=== PATIENT | male | born 1960 | race Caucasian/White ===

== ENCOUNTER 2017-01-25 15:40 | Inpatient (IN) | payer OTHER ==
[2017-01-25] MEDS ORDERED: FAMOTIDINE 20 MG/50 ML IVPB 50 ML IVPB ONE ×2 (15:56→16:04)
[2017-01-25] MEDS ORDERED: ONDANSETRON 4 MG/2 ML VIAL IVPB ONE (15:56)
--- NOTE | 2017-01-25 15:56 | PDOC ---
History of Present Illness - History of Present Illness Initial Comments: 01/25/17 16:02 The patient is a 56 year old male with history of hyperlipidemia and hypothyroidism who presents to the ED complaining of bilateral mid abdominal pain that woke him from sleep at approximately 4 AM today. The patient describes his pain as constant and not associated with eating. He states he experienced similar pain approximately 3 months ago, but the episode was brief and resolved after taking Pepto-Bismol. He reports he took Pepto-Bismol twice today without apparent relief. He does report forcing himself to vomit to try to alleviate his pain without relief, but denies seeing blood and otherwise denies any nausea, vomiting, or diarrhea. The patient denies any fever or chills. He denies chest pain or shortness of breath. He denies any dysuria, hematuria, frequency, or urgency. He states he drinks alcohol socially, but denies any recent alcohol consumption. <Melissa Watkins - Last Filed: 01/25/17 19:09> <Huey Jacobson - Last Filed: 01/25/17 19:12> - General Chief Complaint: Pain, Acute Stated Complaint: ABD PAIN Time Seen by Provider: 01/25/17 15:42 Past History <Melissa Watkins - Last Filed: 01/25/17 19:09> - Past Medical History Hypercholesterolemia: Yes Thyroid Disease: Yes - Psycho/Social/Smoking Cessation Hx Anxiety: No Suicidal Ideation: No Smoking History: Never smoked Have you smoked in the past 12 months: No Hx Alcohol Use: Yes Drug/Substance Use Hx: No Substance Use Type: Alcohol <Huey Jacobson - Last Filed: 01/25/17 19:12> - Past Medical History Allergies/Adverse Reactions: Allergies Allergy/AdvReac Type Severity Reaction Status Date / Time No Known Allergies Allergy Verified 01/25/17 15:41 Home Medications: Ambulatory Orders Atorvastatin Ca [Lipitor] 20 mg PO HS 01/25/17 Levothyroxine [Synthroid -] 25 mcg PO DAILY 01/25/17 Review of Systems - Review of Systems Able to Perform ROS?: Yes Comments:: 01/25/17 16:04 Adult ROS CONSTITUTIONAL: Absent: Fever, Chills, Diaphoresis, Generalized Weakness, Malaise, Loss of Appetite HEENT: Absent: Rhinorrhea, Nasal Congestion, Throat Pain, Throat Swelling, Difficulty Swallowing, Mouth Swelling, Ear Pain, Eye Pain, Visual Changes CARDIOVASCULAR: Absent: Chest Pain, Syncope, Palpitations, Irregular Heart Rate, Lightheadedness , Peripheral Edema RESPIRATORY: Absent: Cough, Shortness of Breath, SOB with Exertion, Orthopnea, Wheezing, Stridor, Hemoptysis GASTROINTESTINAL: Present: Bilateral mid abdominal pain, vomiting x2 (forced) Absent: Abdominal Distension, Nausea, Diarrhea, Constipation, Melena, Hematochezia GENITOURINARY: Absent: Dysuria, Frequency, Urgency, Hesitancy, Flank Pain, Genital Pain MUSCULOSKELETAL: Absent: Myalgia, Arthralgia, Joint Swelling, Back pain, Neck Pain SKIN: Absent: Rash, Itching, PalloR HEMEATOLOGIC/IMMUNOLOGIC: Absent: Easy Bleeding, Easy Bruising, Lymphadenopathy, Frequent infections ENDOCRINE: Absent: Unexplained Weight Gain, Unexplained Weight Loss, Heat Intolerance, Cold Intolerance NEUROLOGIC: Absent: Headache, Focal Weakness, Paresthesias, Vertigo, Lightheadedness, Unsteady Gait, Seizure, Mental Status Changes, Incontinence PSYCHIATRIC: Absent: Anxiety, Depression <Melissa Watkins - Last Filed: 01/25/17 19:09> *Physical Exam - Vital Signs Last Vital Signs Temp Pulse Resp BP Pulse Ox 98.4 F 70 16 146/95 100 01/25/17 15:41 01/25/17 15:41 01/25/17 15:41 01/25/17 15:41 01/25/17 15:41 - Physical Exam Comments: 01/25/17 16:06 GENERAL: The patient is awake, alert, and fully oriented, in no acute distress. HEAD: Normal with no signs of trauma. EYES: Pupils equal, round and reactive to light, extraocular movements intact, sclera anicteric, conjunctiva clear. ENT: Ears normal, nares patent, oropharynx clear without exudates. Moist mucous membranes. NECK: Normal range of motion, supple without lymphadenopathy, JVD, or masses. LUNGS: Breath sounds equal, clear to auscultation bilaterally. No wheezes, and no crackles. HEART: Regular rate and rhythm, normal S1 and S2 without murmur, rub or gallop. ABDOMEN: +RUQ tenderness sign, +[place]'s, but inconsistent. Soft, normoactive bowel sounds. No guarding, no rebound. No masses. No McBurney's point tenderness. BACK: No CVA tenderness. EXTREMITIES: Normal range of motion, no edema. No clubbing or cyanosis. No cords , erythema, or tenderness. NEUROLOGICAL: Cranial nerves II through XII grossly intact. Normal speech, normal gait. PSYCH: Normal mood, normal affect. SKIN: Warm, Dry, normal turgor, no rashes or lesions noted. <Melissa Watkins - Last Filed: 01/25/17 19:09> - Vital Signs Last Vital Signs Temp Pulse Resp BP Pulse Ox 98.4 F 70 16 146/95 100 01/25/17 15:41 01/25/17 15:41 01/25/17 15:41 01/25/17 15:41 01/25/17 15:41 <Huey Jacobson - Last Filed: 01/25/17 19:12> Heart Score/ECG Review - ECG Intrepretation Comment:: 01/25/17 16:19 Twelve-lead EKG shows normal sinus rhythm at a rate of 65 bpm. The axis is normal. The intervals are normal. There are no acute ST elevations or depressions. There are no abnormal T waves. Impression: Normal 12-lead EKG. <Huey Jacobson - Last Filed: 01/25/17 19:12> ED Treatment Course - LABORATORY CBC & Chemistry Diagram: 01/25/17 15:57 01/25/17 15:57 - RADIOLOGY Radiograph Interpretation: 01/25/17 19:08 CT of abdomen and pelvis with contrast, reviewed and interpreted by Imaging Country Sales Manager FINDINGS: The kidneys are normal in size without hydronephrosis, nephrolithiasis or perinephric stranding. There are no stones visualized along the course of the ureters. There is a prominent urachal process at the dome of the bladder containing a large calcification measuring 1 cm and a smaller calcification anterior to this measuring 2 mm. There are multiple large stones in the gallbladder without gallbladder wall thickening or pericholecystic edema to suggest acute cholecystitis. Correlate clinically for right upper quadrant symptoms. The unenhanced liver, spleen, pancreas and adrenal glands are grossly normal Small umbilical hernia containing fat There is no bowel distention A normal appendix is visualized Few sigmoid diverticula without evidence of acute diverticulitis No free air or free fluid THIS DOCUMENT HAS BEEN ELECTRONICALLY SIGNED Wilfred Engel MD 01/25/2017 18:43 EST [facility] pending official radiology reading. My preliminary reading shows acute cholecystitis. <Melissa Watkins - Last Filed: 01/25/17 19:09> - LABORATORY CBC & Chemistry Diagram: 01/25/17 15:57 01/25/17 15:57 <Huey Jacobson - Last Filed: 01/25/17 19:12> Medical Decision Making - Medical Decision Making 01/25/17 18:53 Placed call to patient's PCP, Dr. Dennis Ann, at [phone]. 01/25/17 18:[address] [facility] <Melissa Watkins - Last Filed: 01/25/17 19:09> - Medical Decision Making 01/25/17 18:50 56-year-old man presents with abdominal pain which is across the midline of the abdomen. Pain is been persistent since yesterday. There is nausea but no vomiting. There is no diarrhea or dysuria. On examination, the patient had some mild right upper quadrant tenderness, but this was not consistent. The remainder of the abdominal examination was negative. CT scan of the abdomen and pelvis was done which was notable for gallstones. Ultrasound of the right upper quadrant shows multiple gallstones, gallbladder wall thickening, and mild pericholecystic fluid as well as fatty liver. This is based upon my preliminary review. Final radiology reading is pending. Impression: Acute Cholecystitis Patient to be admitted for IV hydration, nothing by mouth, and IV antibiotics. <Huey Jacobson - Last Filed: 01/25/17 19:12> *DC/Admit/Observation/Transfer - Attestations Scribe Attestion: 01/25/17 16:06 Documentation prepared by Melissa Watkins, acting as family practice medical doctor for Huey Jacobson MD. <Melissa Watkins - Last Filed: 01/25/17 19:09> - Discharge Dispostion Admit: Yes Decision to Admit order Date/Time: 01/25/17 18:51 Dr. Dennis Ann paged for admission. 01/25/17 19:12 Dr. Dennis Ann turned the patient over to the hospitalist at her request. Dr. Burden was notified and will admit the patient and consult surgery. <Huey Jacobson - Last Filed: 01/25/17 19:12> Diagnosis at time of Disposition: Acute cholecystitis - Discharge Dispostion Condition at time of disposition: Stable
[2017-01-25] MEDS ORDERED: ONDANSETRON 4 MG/2 ML VIAL ONE (16:04)
[2017-01-25 16:06] LABS: PH,URINE 5.5 (4.5-8); URINE APPEARANCE Clear; URINE BILIRUBIN Negative (NEGATIVE); URINE GLUCOSE (UA) Negative (NEGATIVE); URINE KETONE Trace (NEGATIVE); URINE LEUK ESTERASE Negative (NEGATIVE); URINE NITRITE Negative (NEGATIVE); URINE UROBILINOGEN 0.2 E.U/dl (0.2-1.0)
[2017-01-25 16:07] LABS: URINE BLOOD 3+ (NEGATIVE); URINE COLOR YELLOW; URINE PROTEIN 1+ (NEGATIVE)
[2017-01-25 16:10] LABS: RDW 12.6 % (11.9-15.9)
[2017-01-25 16:11] LABS: URINE BACTERIA FEW /hpf (NEGATIVE); URINE WBC 0-2 (3-5)
[2017-01-25 16:13] LABS: BASOPHIL 3.2 % (0-2.0); EOSINOPHIL 0.4 % (0-4.5); MCH 30.7 pg (25.7-33.7); MCHC 34.2 g/dl (32.0-35.9); MEAN CELL VOLUME 89.7 fl (80-96); MEAN PLT VOLUME 9.6 fl (7.5-11.1); NEUTROPHILS 77.8 % (42.8-82.8); PLATELET COUNT 239 K/MM3 (134-434); WHITE BLOOD COUNT 11.2 K/mm3 (4.0-10.0)
[2017-01-25 17:10] LABS: ALBUMIN 4.3 g/dl (3.5-5.0); ALK PHOS 57 U/L (32-92); ANION GAP 5 (8-16); BILIRUBIN,TOTAL 0.8 mg/dl (0.2-1.0); CALCIUM 9.1 mg/dl (8.4-10.2); CO2 28 mmol/L (22-28); CREATININE 0.9 mg/dl (0.6-1.3); GLUCOSE,RANDOM 116 mg/dl (74-106); SGOT/AST 28 U/L (10-42); SGPT/ALT 37 U/L (10-40); TOT PROT 6.8 g/dl (6.4-8.3)
[2017-01-25] MEDS ORDERED: HYDROmorphone HCL CARPU-JECT 1 MG/1 ML DISP.SYRIN IVPUSH ONE (17:41)
[2017-01-25] MEDS ORDERED: HYDROmorphone HCL CARPU-JECT 2 MG/1 ML DISP.SYRIN ONE (17:43)
[2017-01-25] MEDS ORDERED: PIPERACILLIN/TAZOB 4.5 GM 4.5 GM in DEXTROSE 5%-WATER 100 ML IVPB ONE (18:46)
[2017-01-25] MEDS ORDERED: PIPERACILLIN/TAZOBACTAM 4.5 GM VIAL IVPB ONE (18:53)
--- NOTE | 2017-01-25 21:04 | HP ---
CHIEF COMPLAINT: Abdominal Pain PCP: Dr. Arango HISTORY OF PRESENT ILLNESS: This is a 56 y/o man with a past medical history of HLD, Hypothyroidism. Who presents to the emergency department with mid- abdominal pain x 4 am today. He reports the pain as constant and sharp without N/V. Patient reports having a similar episode 3 months ago taking Pepto Bismol with relief. Patient denies eating greasy, spicy or fatty foods. Patient denies fever, chills, cough, SOB, CP, diarrhea, melena, hematochezia, dysuria. ER course was notable for: (1) CTAP- multiple large stones in gallbladder. Neg gallbladder wall thickening. Small umbilical hernia containing fat. Few sigmoid diverticula (2) WBC 11.2 no shift, Zosyn given in ED (3) Recent Travel: None PAST MEDICAL HISTORY: HLD Hypothyroid PAST SURGICAL HISTORY: None Social History: Smoking: None Alcohol: Occasional wine/beer Drugs: None Lives with spouse, employed Caregiver Family History: Non-Contributory Allergies No Known Allergies Allergy (Verified 01/25/17 15:41) HOME MEDICATIONS: Home Medications Medication Instructions Recorded Atorvastatin Ca [Lipitor] 20 mg PO HS 01/25/17 Levothyroxine [Synthroid -] 25 mcg PO DAILY 01/25/17 REVIEW OF SYSTEMS CONSTITUTIONAL: Absent: fever, chills, diaphoresis, generalized weakness, malaise, loss of appetite, weight change HEENT: Absent: rhinorrhea, nasal congestion, throat pain, throat swelling, difficulty swallowing, mouth swelling, ear pain, eye pain, visual changes CARDIOVASCULAR: Absent: chest pain, syncope, palpitations, irregular heart rate, lightheadedness , peripheral edema RESPIRATORY: Absent: cough, shortness of breath, dyspnea with exertion, orthopnea, wheezing, stridor, hemoptysis GASTROINTESTINAL: abdominal pain Absent: abdominal distension, nausea, vomiting, diarrhea, constipation, melena, hematochezia GENITOURINARY: Absent: dysuria, frequency, urgency, hesitancy, hematuria, flank pain, genital pain MUSCULOSKELETAL: Absent: myalgia, arthralgia, joint swelling, back pain, neck pain SKIN: Absent: rash, itching, pallor HEMATOLOGIC/IMMUNOLOGIC: Absent: easy bleeding, easy bruising, lymphadenopathy, frequent infections ENDOCRINE: Absent: unexplained weight gain, unexplained weight loss, heat intolerance, cold intolerance NEUROLOGIC: Absent: headache, focal weakness or paresthesias, dizziness, unsteady gait, seizure, mental status changes, bladder or bowel incontinence PSYCHIATRIC: Absent: anxiety, depression, suicidal or homicidal ideation, hallucinations. PHYSICAL EXAMINATION Vital Signs - 24 hr 01/25/17 19:44 Temperature 98.6 F Pulse Rate [ 75 Right] Respiratory 16 Rate Blood Pressure 121/79 [Right] O2 Sat by Pulse 97 Oximetry (%) GENERAL: Awake, alert, and fully oriented, in no acute distress. HEAD: Normal with no signs of trauma. EYES: Pupils equal, round and reactive to light, extraocular movements intact, sclera anicteric, conjunctiva clear. No lid lag. EARS, NOSE, THROAT: Ears normal, nares patent, oropharynx clear without exudates. Moist mucous membranes. NECK: Normal range of motion, supple without lymphadenopathy, JVD, or masses. LUNGS: Breath sounds equal, clear to auscultation bilaterally. No wheezes, and no crackles. No accessory muscle use. HEART: Regular rate and rhythm, normal S1 and S2 without murmur, rub or gallop. ABDOMEN: Soft, mid- umbilical tenderness, not distended, normoactive bowel sounds, no guarding, no rebound, no masses. No hepatomegaly or splenomegaly. MUSCULOSKELETAL: Normal range of motion at all joints. No bony deformities or tenderness. No CVA tenderness. UPPER EXTREMITIES: 2+ pulses, warm, well-perfused. No cyanosis. No clubbing. Cap refill <2 seconds. No peripheral edema. LOWER EXTREMITIES: 2+ pulses, warm, well-perfused. No calf tenderness. No peripheral edema. NEUROLOGICAL: Cranial nerves II-XII intact. Normal speech. Normal gait. PSYCHIATRIC: Cooperative. Good eye contact. Appropriate mood and affect. SKIN: Warm, dry, normal turgor, no rashes or lesions noted. Laboratory Results - last 24 hr 01/25/17 01/25/17 01/25/17 15:57 15:57 16:03 WBC 11.2 H RBC 5.04 Hgb 15.5 Hct 45.2 MCV 89.7 MCHC 34.2 RDW 12.6 Plt Count 239 MPV 9.6 Neutrophils % 77.8 Lymphocytes % 14.7 Monocytes % 3.9 Eosinophils % 0.4 Basophils % 3.2 H Sodium 135 L Potassium 3.6 Chloride 102 Carbon Dioxide 28 Anion Gap 5 L BUN 17 Creatinine 0.9 Creat Clearance w eGFR > 60 Random Glucose 116 H Calcium 9.1 Total Bilirubin 0.8 AST 28 ALT 37 Alkaline Phosphatase 57 Total Protein 6.8 Albumin 4.3 Lipase 30 Urine Color Yellow Urine Appearance Clear Urine pH 5.5 Ur Specific [place] >= 1.030 H Urine Protein 1+ H Urine Glucose (UA) Negative Urine Ketones Trace Urine Blood 3+ H Urine Nitrite Negative Urine Bilirubin Negative Urine Urobilinogen 0.2 e.u/dl Ur Leukocyte Esterase Negative Urine RBC 10-20 Urine WBC 0-2 Urine Bacteria Few Blood Type Antibody Screen 01/25/17 01/25/17 21:00 21:12 WBC RBC Hgb Hct MCV MCHC RDW Plt Count MPV Neutrophils % Lymphocytes % Monocytes % Eosinophils % Basophils % Sodium Potassium Chloride Carbon Dioxide Anion Gap BUN Creatinine Creat Clearance w eGFR Random Glucose Calcium Total Bilirubin AST ALT Alkaline Phosphatase Total Protein Albumin Lipase Urine Color Urine Appearance Urine pH Ur Specific [place] Urine Protein Urine Glucose (UA) Urine Ketones Urine Blood Urine Nitrite Urine Bilirubin Urine Urobilinogen Ur Leukocyte Esterase Urine RBC Urine WBC Urine Bacteria Blood Type O POSITIVE O POSITIVE Antibody Screen Negative Heart Score/ECG Review - ECG Intrepretation Comment:: 01/25/17 16:19 Twelve-lead EKG shows normal sinus rhythm at a rate of 65 bpm. The axis is normal. The intervals are normal. There are no acute ST elevations or depressions. There are no abnormal T waves. Impression: Normal 12-lead EKG. - RADIOLOGY Radiograph Interpretation: 01/25/17 19:08 CT of abdomen and pelvis with contrast, reviewed and interpreted by Imaging Supervisor Calibration FINDINGS: The kidneys are normal in size without hydronephrosis, nephrolithiasis or perinephric stranding. There are no stones visualized along the course of the ureters. There is a prominent urachal process at the dome of the bladder containing a large calcification measuring 1 cm and a smaller calcification anterior to this measuring 2 mm. There are multiple large stones in the gallbladder without gallbladder wall thickening or pericholecystic edema to suggest acute cholecystitis. Correlate clinically for right upper quadrant symptoms. The unenhanced liver, spleen, pancreas and adrenal glands are grossly normal Small umbilical hernia containing fat There is no bowel distention A normal appendix is visualized Few sigmoid diverticula without evidence of acute diverticulitis No free air or free fluid THIS DOCUMENT HAS BEEN ELECTRONICALLY SIGNED Wilfred Jsoe Ditzenberger, MD 01/25/2017 18:43 EST [facility] US- report pending ASSESSMENT/PLAN: This is a 56 y/o male with a PMHx of HLD, Hypothroidism. Presents to the ED with abdominal pain. Admitted for Acute Cholecystitis for further evaluation of their emergent condition. Plan: 1. Acute Cholecystitis - Slight WBC without a left shift - CTAP- see above - Zosyn given in ED - Will start on Ceftraixone, Metronidazole - Appreciate Surgical Consult - NPO - IVF - Monitor CBC, BMP - Morphine prn 2. HLD - Hold home meds 3. Hypothyroidism - Hold home med until seen by Surgeon possible surgery 4. FEN - D51/2NS@83ml/hr - Replete lyte prn - NPO 5. DVT Prophylaxis - OOB - SCDs - Consider ACs if LOS > 48 hrs Code Status: Full Code Problem List - Problem (1) Acute cholecystitis Code(s): K81.0 - ACUTE CHOLECYSTITIS (2) HLD (hyperlipidemia) Code(s): E78.5 - HYPERLIPIDEMIA, UNSPECIFIED (3) Hypothyroid Code(s): E03.9 - HYPOTHYROIDISM, UNSPECIFIED (4) DVT prophylaxis Code(s): MKX1361 - Visit type - Emergency Visit Emergency Visit: Yes ED Registration Date: 01/25/17 Care time: The patient presented to the Emergency Department on the above date and was hospitalized for further evaluation of their emergent condition. - New Patient This patient is new to me today: Yes Date on this admission: 01/25/17 - Critical Care Critical Care patient: No
[2017-01-25] MEDS: morphine CARPU-JECT 4 MG/1 ML DISP.SYRIN IVPUSH PRN (21:29)
[2017-01-25] MEDS ORDERED: DEXTROSE 5%-0.45% SALINE 1,000 ML IV SCH (22:45)
[2017-01-25 22:46] VITALS: BMI 29.7
[2017-01-26] MEDS: METRONIDAZOLE 500 MG PREMIXED 100 ML IVPB SCH ×3 (01:38→17:15)
[2017-01-26] MEDS: morphine CARPU-JECT 4 MG/1 ML DISP.SYRIN IVPUSH PRN ×3 (04:15→19:49)
--- NOTE | 2017-01-26 08:43 | PN ---
[id number] patient is a 56 y/o man with a past medical history of HLD, Hypothyroidism. patient was admitted from the emergency department for acute cholecystitis Vital Signs Period Temp Pulse Resp BP Sys/Bui Pulse Ox Last 24 Hr 98.3 F-99.7 F 75-96 16-18 106-132/67-79 95-100 GENERAL: The patient is awake, alert, and fully oriented, in no acute distress. HEAD: Normal with no signs of trauma. EYES: PERRL, extraocular movements intact, sclera anicteric, conjunctiva clear. No ptosis. ENT: Ears normal, nares patent, oropharynx clear without exudates, moist mucous membranes. NECK: Trachea midline, full range of motion, supple. LUNGS: Breath sounds equal, clear to auscultation bilaterally, no wheezes, no crackles, no accessory muscle use. HEART: Regular rate and rhythm, S1, S2 without murmur, rub or gallop. ABDOMEN: Soft, + cee's sign, nondistended, normoactive bowel sounds, no guarding, no rebound, no hepatosplenomegaly, no masses. EXTREMITIES: 2+ pulses, warm, well-perfused, no edema. NEUROLOGICAL: Cranial nerves II through XII grossly intact. Normal speech, gait not observed. PSYCH: Normal mood, normal affect. SKIN: Warm, dry, normal turgor, no rashes or lesions noted Laboratory Results - last 24 hr 01/25/17 01/25/17 21:00 21:12 Blood Type O POSITIVE O POSITIVE Antibody Screen Negative CBC WBC 10.6 K/mm3 (4.0-10.0) H 01/26/17 07:32 RBC 4.83 M/mm3 (4.00-5.60) 01/26/17 07:32 Hgb 14.4 GM/dl (11.7-16.9) 01/26/17 07:32 Hct 43.6 % (35.4-49) 01/26/17 07:32 MCV 90.3 fl (80-96) 01/26/17 07:32 MCHC 33.0 g/dl (32.0-35.9) 01/26/17 07:32 RDW 12.5 % (11.9-15.9) 01/26/17 07:32 Plt Count 200 K/MM3 (134-434) 01/26/17 07:32 MPV 9.5 fl (7.5-11.1) 01/26/17 07:32 Neutrophils % 77.8 % (42.8-82.8) 01/25/17 15:57 Lymphocytes % 14.7 % (8-40) 01/25/17 15:57 Monocytes % 3.9 % (3.8-10.2) 01/25/17 15:57 Eosinophils % 0.4 % (0-4.5) 01/25/17 15:57 Basophils % 3.2 % (0-2.0) H 01/25/17 15:57 CMP Sodium 135 mmol/L (136-145) L 01/26/17 07:32 Potassium 3.4 mmol/L (3.5-5.1) L 01/26/17 07:32 Chloride 104 mmol/L (98-107) 01/26/17 07:32 Carbon Dioxide 26 mmol/L (22-28) 01/26/17 07:32 Anion Gap 5 (8-16) L 01/26/17 07:32 BUN 15 mg/dl (7-18) 01/26/17 07:32 Creatinine 0.9 mg/dl (0.6-1.3) 01/26/17 07:32 Creat Clearance w eGFR > 60 (>60) 01/25/17 15:57 Random Glucose 109 mg/dl (74-106) H 01/26/17 07:32 Calcium 8.7 mg/dl (8.4-10.2) 01/26/17 07:32 Phosphorus 3.3 mg/dl (2.5-4.6) 01/26/17 Unknown Magnesium 1.9 mg/dL (1.8-2.4) 01/26/17 Unknown Total Bilirubin 0.8 mg/dl (0.2-1.0) 01/25/17 15:57 AST 28 U/L (10-42) 01/25/17 15:57 ALT 37 U/L (10-40) 01/25/17 15:57 Alkaline Phosphatase 57 U/L (32-92) 01/25/17 15:57 Total Protein 6.8 g/dl (6.4-8.3) 01/25/17 15:57 Albumin 4.3 g/dl (3.5-5.0) 01/25/17 15:57 Lipase 30 U/L (22-51) 01/25/17 15:57 Active Medications Generic Name Dose Route Start Last Admin Trade Name Freq PRN Reason Stop Dose Admin Acetaminophen 1,000 mg 01/26/17 08:41 Ofirmev Injection - IVPB 01/26/17 08:42 ONCE ONE Ceftriaxone Sodium 50 mls @ 100 mls/hr 01/26/17 10:00 Rocephin 1gm Ivpb (Pre-Docked) IVPB DAILY LYRIC Metronidazole 100 mls @ 100 mls/hr 01/26/17 02:00 01/26/17 01:38 Flagyl 500mg Premixed Ivpb - IVPB 100 mls/hr Q8H-IV LYRIC Administration Dextrose/Sodium Chloride 1,000 mls @ 83 mls/hr 01/25/17 22:45 01/25/17 23:40 D5-1/2ns - IV 83 mls/hr ASDIR LYRIC Administration Morphine Sulfate 4 mg 01/25/17 21:04 01/26/17 04:15 Morphine Injection - IVPUSH 4 mg Q4H PRN Administration PAIN ASSESSMENT/PLAN: 1. GI:Acute Cholecystitis - Slight leukocytoisis, low grade temp noted, continue rocephin and flagyl -surgery consulted and followed, plan for choleystecomy tommorow - IVF - Morphine prn 2. HLD - Hold home meds 3. Hypothyroidism - Hold home med until seen by Surgeon possible surgery 4. - ct scan of abd/pelvis, ? urachal carcinoma --> appreciate urology input 5. FEN - D51/2NS w/20meq kci @100mll/hr - Replete potassium - clear liquid 6. DVT Prophylaxis - OOB - SCDs - Consider ACs if LOS > 48 hrs Code Status: Full Code Visit type - Emergency Visit Emergency Visit: Yes ED Registration Date: 01/25/17 Care time: The patient presented to the Emergency Department on the above date and was hospitalized for further evaluation of their emergent condition. - New Patient This patient is new to me today: Yes Date on this admission: 01/26/17 - Critical Care Critical Care patient: No - Discharge Referral Referred to [facility] Yes Physician Referral: Dyan Reyes MD ([facility])
[2017-01-26 08:50] LABS: MCH 29.8 pg (25.7-33.7); MEAN CELL VOLUME 90.3 fl (80-96); MEAN PLT VOLUME 9.5 fl (7.5-11.1); PLATELET COUNT 200 K/MM3 (134-434); RDW 12.5 % (11.9-15.9); WHITE BLOOD COUNT 10.6 K/mm3 (4.0-10.0)
[2017-01-26 09:04] LABS: INR 1.15 (0.82-1.09); PROTHROMBIN TIME (PATIENT) 12.8 SEC (10.2-13.0)
[2017-01-26 09:05] LABS: CALCIUM 8.7 mg/dl (8.4-10.2); CREATININE 0.9 mg/dl (0.6-1.3)
[2017-01-26 09:11] LABS: ACTIVATED PTT 26.8 SECONDS (24.0-38.9)
[2017-01-26] MEDS ORDERED: ACETAMINOPHEN 1000 MG/100 ML VIAL (NON FORMULARY) IVPB ONE (09:15)
[2017-01-26] MEDS: CEFTRIAXONE 50 ML IVPB SCH (10:32)
[2017-01-26 11:26] LABS: MAGNESIUM 1.9 mg/dL (1.8-2.4); PHOSPHOROUS 3.3 mg/dl (2.5-4.6)
--- NOTE | 2017-01-26 12:09 | CONSULT ---
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 for which Urology was consulted - History Source History Provided By: Patient, Medical Record - Past Medical History Cardio/Vascular: Yes: Hyperlipdemia Endocrine: Yes: Hypothyroidism - Alcohol/Substance Use Hx Alcohol Use: Yes - Smoking History Smoking history: Never smoked Have you smoked in the past 12 months: No Home Medications - Allergies Allergies/Adverse Reactions: Allergies Allergy/AdvReac Type Severity Reaction Status Date / Time No Known Allergies Allergy Verified 01/25/17 15:41 - Home Medications Home Medications: Ambulatory Orders Atorvastatin Ca [Lipitor] 20 mg PO HS 01/25/17 Levothyroxine [Synthroid -] 25 mcg PO DAILY 01/25/17 Family Disease History - Family Disease History Family History: Unremarkable Review of Systems - Review of Systems Constitutional: denies: Chills, Fever Neck: reports: No Symptoms Cardiovascular: denies: Chest Pain Respiratory: denies: Cough Gastrointestinal: reports: Abdominal Pain (RUQ), Nausea. denies: Diarrhea, Vomiting Neurological: denies: Change in LOC Pain Intensity: 3 Physical Exam Vital Signs: Vital Signs Temperature 100 F H 01/26/17 08:45 Pulse Rate 96 H 01/26/17 08:45 Respiratory Rate 24 01/26/17 08:45 Blood Pressure 112/66 01/26/17 08:45 O2 Sat by Pulse Oximetry (%) 95 01/26/17 06:07 Constitutional: Yes: No Distress, Calm Neck: Yes: Supple Cardiovascular: Yes: Regular Rate and Rhythm Respiratory: Yes: Regular Gastrointestinal: Yes: Soft, Tenderness (Mild RUQ). No: Distention, Tenderness , Rebound Extremities: Yes: WNL Neurological: Yes: Alert, Oriented Labs: CBC, BMP 01/26/17 07:32 01/26/17 07:32 Imaging - Results Cat Scan: Report Reviewed, Image Reviewed Ultrasound: Report Reviewed, Image Reviewed Problem List - Problems (1) Acute cholecystitis Code(s): K81.0 - ACUTE CHOLECYSTITIS (2) HLD (hyperlipidemia) Code(s): E78.5 - HYPERLIPIDEMIA, UNSPECIFIED Qualifiers: Hyperlipidemia type: unspecified Qualified Code(s): E78.5 - Hyperlipidemia, unspecified (3) Hypothyroid Code(s): E03.9 - HYPOTHYROIDISM, UNSPECIFIED Qualifiers: Hypothyroidism type: unspecified Qualified Code(s): E03.9 - Hypothyroidism, unspecified Assessment/Plan 56 male with acute cholecystitis NPO IV fluids Antibiotics For Laparoscopic possible open cholecystectomy in am Urology consulted for urachal calcification
[2017-01-26] MEDS: D5-1/2NS+20 MEQ KCL - 1,000 ML IV SCH (12:53)
[2017-01-26] MEDS ORDERED: POTASSIUM CHLORIDE TABS 20 MEQ TABLET.ER (FP) PO ONE (14:30)
--- NOTE | 2017-01-26 17:36 | EKG ---
Test Reason : Blood Pressure : / mmHG Vent. Rate : 065 BPM Atrial Rate : 065 BPM P-R Int : 176 ms QRS Dur : 116 ms QT Int : 400 ms P-R-T Axes : 037 021 030 degrees QTc Int : 416 ms NORMAL SINUS RHYTHM NO PREVIOUS ECGS AVAILABLE Confirmed by MD WAGNER MARJORY ([id number]) on 01/26/2017 5:35:34 PM Referred By: RADHA MAYO Confirmed By:MARC WAGNER MD
[2017-01-27] MEDS: METRONIDAZOLE 500 MG PREMIXED 100 ML IVPB SCH ×3 (01:47→17:18)
[2017-01-27] MEDS: morphine CARPU-JECT 4 MG/1 ML DISP.SYRIN IVPUSH PRN (05:24)
[2017-01-27] MEDS: LEVOTHYROXINE NA 25 MCG TABLET (FP) PO SCH (06:07)
--- NOTE | 2017-01-27 08:17 | CONSULT ---
Consult - text type - Consultation Consultation Note: Urology Consultation-Dr. Bassett CC: urachal mass HPI: Patient admitted with right upper quadrant pain scheduled for a cholecystomy today. On CT scan a urachal mas is seen. Patient denies gross hematuria, umbilical drainage, recurrent uti's, history of stores, significant urinary symptoms. PE abd-soft with out palpable suprapubic mass or palpable bladder CT Scan reviewed imp urachal/bladder mass plan will schedule cystoscopy as outpatient discussed x 20 minutes
[2017-01-27] MEDS: CEFTRIAXONE 50 ML IVPB SCH (09:05)
[2017-01-27 09:18] LABS: BASOPHIL 1.5 % (0-2.0); EOSINOPHIL 2.8 % (0-4.5); MCH 30.8 pg (25.7-33.7); MCHC 33.5 g/dl (32.0-35.9); MEAN CELL VOLUME 92.1 fl (80-96); MEAN PLT VOLUME 9.8 fl (7.5-11.1); NEUTROPHILS 62.6 % (42.8-82.8); PLATELET COUNT 180 K/MM3 (134-434); RDW 12.6 % (11.9-15.9); WHITE BLOOD COUNT 10.2 K/mm3 (4.0-10.0)
[2017-01-27 09:54] LABS: ALBUMIN 3.6 g/dl (3.5-5.0); ALK PHOS 49 U/L (32-92); ANION GAP 4 (8-16); BILIRUBIN,TOTAL 0.9 mg/dl (0.2-1.0); CALCIUM 8.8 mg/dl (8.4-10.2); CO2 29 mmol/L (22-28); CREATININE 0.9 mg/dl (0.6-1.3); GLUCOSE,RANDOM 103 mg/dl (74-106); SGOT/AST 38 U/L (10-42); SGPT/ALT 48 U/L (10-40); TOT PROT 6.2 g/dl (6.4-8.3)
[2017-01-27] MEDS ORDERED: MIDAZOLAM HCL 2 MG/2 ML SINGLE DOSE VIAL ONE (10:52)
[2017-01-27] MEDS ORDERED: ROCURONIUM BROMIDE 50 MG/5 ML VIAL ONE (10:52)
[2017-01-27] MEDS ORDERED: BUPIVACAINE HCL/PF 2.5 MG/ML - 30 ML VIAL IJ ONE (11:29)
[2017-01-27] MEDS ORDERED: LIDOCAINE HCL/PF 2% SDV 5ML VIAL ONE (11:39)
[2017-01-27] MEDS ORDERED: KETOROLAC TROMETHAMINE 30 MG/1 ML VIAL ONE (11:39)
[2017-01-27] MEDS ORDERED: ONDANSETRON 4 MG/2 ML VIAL ONE (11:39)
[2017-01-27] MEDS ORDERED: LIDOCAINE HCL 2% JELLY (5 ML/TUBE) ONE (11:39)
[2017-01-27] MEDS ORDERED: ceFAZolin SODIUM 1 GM VIAL ONE (11:39)
[2017-01-27] MEDS ORDERED: DEXAMETHASONE SOD PHOSPHATE 4 MG/1 ML VIAL ONE (11:39)
--- NOTE | 2017-01-27 12:23 | PN ---
[id number]. OBJECTIVE: patient is a 56 y/o man with a past medical history of HLD, Hypothyroidism. patient was admitted from the emergency department for acute cholecystitis Vital Signs Period Temp Pulse Resp BP Sys/Bui Pulse Ox Last 24 Hr 98.4 F-99.7 F 82-86 18-18 94-101/57-64 94-95 GENERAL: The patient is awake, alert, and fully oriented, in no acute distress. HEAD: Normal with no signs of trauma. EYES: PERRL, extraocular movements intact, sclera anicteric, conjunctiva clear. No ptosis. ENT: Ears normal, nares patent, oropharynx clear without exudates, moist mucous membranes. NECK: Trachea midline, full range of motion, supple. LUNGS: Breath sounds equal, clear to auscultation bilaterally, no wheezes, no crackles, no accessory muscle use. HEART: Regular rate and rhythm, S1, S2 without murmur, rub or gallop. ABDOMEN: Soft, nontender, nondistended, normoactive bowel sounds, no guarding, no rebound, no hepatosplenomegaly, no masses. EXTREMITIES: 2+ pulses, warm, well-perfused, no edema. NEUROLOGICAL: Cranial nerves II through XII grossly intact. Normal speech, gait not observed. PSYCH: Normal mood, normal affect. SKIN: Warm, dry, normal turgor, no rashes or lesions noted Laboratory Results - last 24 hr 01/27/17 01/27/17 07:00 08:18 WBC 10.2 H RBC 4.65 Hgb 14.3 Hct 42.8 MCV 92.1 MCHC 33.5 RDW 12.6 Plt Count 180 MPV 9.8 Neutrophils % 62.6 Lymphocytes % 22.4 D Monocytes % 10.7 H D Eosinophils % 2.8 D Basophils % 1.5 Sodium 137 Potassium 3.7 Chloride 104 Carbon Dioxide 29 H Anion Gap 4 L BUN 12 Creatinine 0.9 Creat Clearance w eGFR > 60 Random Glucose 103 Calcium 8.8 Total Bilirubin 0.9 AST 38 D ALT 48 H D Alkaline Phosphatase 49 Total Protein 6.2 L Albumin 3.6 Active Medications Generic Name Dose Route Start Last Admin Trade Name Freq PRN Reason Stop Dose Admin Ceftriaxone Sodium 50 mls @ 100 mls/hr 01/26/17 10:00 01/27/17 09:05 Rocephin 1gm Ivpb (Pre-Docked) IVPB 100 mls/hr DAILY LYRIC Administration Metronidazole 100 mls @ 100 mls/hr 01/26/17 02:00 01/27/17 09:29 Flagyl 500mg Premixed Ivpb - IVPB 100 mls/hr Q8H-IV LYRIC Administration Potassium Chloride/Dextrose/Sod Cl 1,000 mls @ 100 mls/hr 01/26/17 11:00 12:53 D5-1/2ns+20 Meq Kcl - IV 100 mls/hr ASDIR LYRIC Administration Levothyroxine Sodium 25 mcg 01/27/17 07:00 01/27/17 06:07 Synthroid - PO Not Given DAILY@0700 LYRIC Morphine Sulfate 4 mg 01/25/17 21:04 01/27/17 05:24 Morphine Injection - IVPUSH 4 mg Q4H PRN Administration PAIN Microbiology 01/25/17 19:01 Blood - Peripheral Venous Blood Culture - Preliminary NO GROWTH OBTAINED AFTER 24 HOURS, INCUBATION TO CONTINUE FOR 4 DAYS. 01/25/17 19:01 Blood - Peripheral Venous Blood Culture - Preliminary NO GROWTH OBTAINED AFTER 24 HOURS, INCUBATION TO CONTINUE FOR 4 DAYS. ASSESSMENT/PLAN: 1. GI:Acute Cholecystitis - slight leukocytosis and low-grade temp noted, will continue with Rocephin and Flagyl - Patient is pending or today lap cholecystectomy (Arad) - nothing by mouth continue IV fluids - ontinue Morphine prn 2. HLD - Hold home meds 3. Hypothyroidism - continue levothyroxine 4). - ct scan of abd/pelvis, ? urachal carcinoma -->pt evaluated by urology, follow up as outpatient 5. FEN - D51/2NS w/20meq kci @100mll/hr - Replete potassium - npo 6. DVT Prophylaxis - OOB - SCDs - Consider ACs if LOS > 48 hrs Code Status: Full Code DISPO: d/c tomm if tolerating diet Visit type - Emergency Visit Emergency Visit: Yes ED Registration Date: 01/25/17 Care time: The patient presented to the Emergency Department on the above date and was hospitalized for further evaluation of their emergent condition. - New Patient This patient is new to me today: No - Critical Care Critical Care patient: No - Discharge Referral Referred to [facility] Med [facility].C.: No
[2017-01-27] MEDS ORDERED: PROPOFOL 20 ML ONE (13:24)
[2017-01-27] MEDS ORDERED: NEOSTIGMINE METHYLSULFATE 0.5 MG/ML - 10 ML MDV ONE (13:25)
--- NOTE | 2017-01-27 14:00 | OP ---
Operative Note - Note: Operative Date: 01/27/17 Pre-Operative Diagnosis: Acute cholecystitis Operation: Laparoscopic cholecystectomy Findings: Distended, inflamed gallbladder Post-Operative Diagnosis: Same as Pre-op Surgeon: Lawrence Gerard Extrusion Press Adjuster: Birdie Metzger Anesthesia: General Specimens Removed: Gallbladder Estimated Blood Loss (mls): 50 Operative Report Dictated: Yes
[2017-01-27] MEDS ORDERED: LACTATED RINGERS SOLUTION 1,000 ML IV SCH (14:15)
[2017-01-27] MEDS ORDERED: HYDROmorphone HCL CARPU-JECT 1 MG/1 ML DISP.SYRIN IVPB PRN (14:51)
[2017-01-27] MEDS ORDERED: ONDANSETRON 4 MG/2 ML VIAL IVPB PRN (14:52)
--- NOTE | 2017-01-27 15:04 | SURG ---
Surgery Consulting Sales Executive Note Consulting Sales Executive: Birdie Metzger PA-C Date of Service: 01/27/17 Diagnosis: Acute cholecystitis Procedure: Laparoscopic cholecystectomy I was present for the entirety of the operative procedure. For further detail, please refer to operative report. Visit type - Case Type Case Type: ED Admission - Emergency Emergency Visit: Yes ED Registration Date: 01/25/17 Care time: The patient presented to the Emergency Department on the above date and was hospitalized for further evaluation of their emergent condition. - New patient This patient is new to me today: Yes Date on this admission: 01/27/17 - Critical Care Critical Care patient: No
[2017-01-27 15:40] LABS: BASOPHIL 0.7 % (0-2.0); EOSINOPHIL 1.1 % (0-4.5); MCH 29.9 pg (25.7-33.7); MCHC 33.2 g/dl (32.0-35.9); MEAN CELL VOLUME 90.2 fl (80-96); MEAN PLT VOLUME 9.5 fl (7.5-11.1); NEUTROPHILS 85.7 % (42.8-82.8); PLATELET COUNT 197 K/MM3 (134-434); RDW 12.8 % (11.9-15.9); WHITE BLOOD COUNT 10.1 K/mm3 (4.0-10.0)
[2017-01-27 16:09] LABS: ALBUMIN 3.9 g/dl (3.5-5.0); ALK PHOS 58 U/L (32-92); ANION GAP 6 (8-16); BILIRUBIN,TOTAL 0.7 mg/dl (0.2-1.0); CALCIUM 8.9 mg/dl (8.4-10.2); CO2 26 mmol/L (22-28); CREATININE 1.1 mg/dl (0.6-1.3); GLUCOSE,RANDOM 132 mg/dl (74-106); SGOT/AST 89 U/L (10-42); SGPT/ALT 85 U/L (10-40); TOT PROT 6.8 g/dl (6.4-8.3)
[2017-01-27] MEDS: D5-1/2NS+20 MEQ KCL - 1,000 ML IV SCH (16:16)
[2017-01-27] MEDS: OXYCODONE/APAP 5/325MG COMBO TABLET PO PRN (20:15)
[2017-01-28] MEDS: OXYCODONE/APAP 5/325MG COMBO TABLET PO PRN ×3 (01:17→10:34)
[2017-01-28] MEDS: METRONIDAZOLE 500 MG PREMIXED 100 ML IVPB SCH ×2 (01:17→10:34)
[2017-01-28 06:17] VITALS: BP 120/72; PULSE 95; TEMP 99.2
[2017-01-28] MEDS: LEVOTHYROXINE NA 25 MCG TABLET (FP) PO SCH (06:29)
[2017-01-28 09:26] LABS: BASOPHIL 0.6 % (0-2.0); EOSINOPHIL 0.1 % (0-4.5); MCH 30.7 pg (25.7-33.7); MCHC 33.4 g/dl (32.0-35.9); MEAN CELL VOLUME 91.8 fl (80-96); MEAN PLT VOLUME 9.5 fl (7.5-11.1); NEUTROPHILS 76.5 % (42.8-82.8); PLATELET COUNT 183 K/MM3 (134-434); RDW 12.7 % (11.9-15.9); WHITE BLOOD COUNT 10.6 K/mm3 (4.0-10.0)
[2017-01-28 09:48] LABS: ALBUMIN 3.3 g/dl (3.5-5.0); ALK PHOS 46 U/L (32-92); ANION GAP 7 (8-16); BILIRUBIN,TOTAL 0.9 mg/dl (0.2-1.0); CALCIUM 8.6 mg/dl (8.4-10.2); CO2 25 mmol/L (22-28); CREATININE 0.9 mg/dl (0.6-1.3); GLUCOSE,RANDOM 106 mg/dl (74-106); SGOT/AST 86 U/L (10-42); SGPT/ALT 89 U/L (10-40); TOT PROT 5.8 g/dl (6.4-8.3)
--- NOTE | 2017-01-28 10:17 | PN ---
Progress Note (short form) - Note Progress Note: POD 1 Laparoscopic cholecystectomy No events reported AVSS CBC, BMP 01/28/17 08:28 01/28/17 08:28 Can be discharged home from [facility] on antibiotics No lifting more than 10 pounds x 2 months F/U in 2 weeks Problem List - Problems (1) Acute cholecystitis Code(s): K81.0 - ACUTE CHOLECYSTITIS (2) HLD (hyperlipidemia) Code(s): E78.5 - HYPERLIPIDEMIA, UNSPECIFIED Qualifiers: Hyperlipidemia type: unspecified Qualified Code(s): E78.5 - Hyperlipidemia, unspecified (3) Hypothyroid Code(s): E03.9 - HYPOTHYROIDISM, UNSPECIFIED Qualifiers: Hypothyroidism type: unspecified Qualified Code(s): E03.9 - Hypothyroidism, unspecified
[2017-01-28] MEDS: CEFTRIAXONE 50 ML IVPB SCH (10:34)
--- NOTE | 2017-01-28 11:23 | PN ---
Progress Note, Physician Chief Complaint: Pt pain controlled, no GA complaints. - Current Medication List Current Medications: Active Medications Fentanyl (Sublimaze Injection -) 50 mcg IVPUSH [id number] PRN PRN Reason: PAIN Stop: 01/30/17 14:47 Hydromorphone HCl (Dilaudid Injection -) 1 mg IVPB Q4H PRN PRN Reason: PAIN Last Admin: 01/27/17 17:13 Dose: 1 mg Ceftriaxone Sodium (Rocephin 1gm Ivpb (Pre-Docked)) 50 mls @ 100 mls/hr IVPB DAILY [facility] Last Admin: 01/28/17 10:34 Dose: 100 mls/hr Metronidazole (Flagyl 500mg Premixed Ivpb -) 100 mls @ 100 mls/hr IVPB Q8H-IV [facility] Last Admin: 01/28/17 10:34 Dose: 100 mls/hr Potassium Chloride/Dextrose/Sod Cl (D5-1/2ns+20 Meq Kcl -) 1,000 mls @ 100 mls/ hr IV ASDIR [facility] Last Admin: 01/27/17 16:16 Dose: 100 mls/hr Lactated Ringer's (Lactated Ringers Solution) 1,000 mls @ 125 mls/hr IV ASDIR [facility] Levothyroxine Sodium (Synthroid -) 25 mcg PO DAILY@0700 [facility] Last Admin: 01/28/17 06:29 Dose: 25 mcg Ondansetron HCl (Zofran Injection) 4 mg IVPB Q4H PRN PRN Reason: NAUSEA AND/OR VOMITING Oxycodone/Acetaminophen (Percocet 5/325 -) 2 combo PO Q4H PRN PRN Reason: PAIN LEVEL 6-10 Last Admin: 01/28/17 10:34 Dose: 2 combo - Objective Vital Signs: Vital Signs Temperature 99.2 F 01/28/17 06:00 Pulse Rate 95 H 01/28/17 06:00 Respiratory Rate 18 01/28/17 06:00 Blood Pressure 120/72 01/28/17 06:00 O2 Sat by Pulse Oximetry (%) 95 01/28/17 06:00 Constitutional: Yes: Well Nourished, No Distress, Calm Musculoskeletal: Yes: WNL Neurological: Yes: WNL, Alert, Oriented Labs: CBC, BMP 01/28/17 08:28 01/28/17 08:28 INR, PTT INR 1.15 (0.82-1.09) 01/26/17 07:32 Assessment/Plan POD#1 s/p laparoscopic cholecystectomy under GA. Doing well. D/C from anesthesia care.
--- NOTE | 2017-01-28 16:15 | OP ---
DATE OF OPERATION: 01/27/2017 SURGEON: Alisia Gerard MD LOCAL DELIVERY TRUCK DRIVER: ARI Tomlinson PREOPERATIVE DIAGNOSIS: Acute cholecystitis. POSTOPERATIVE DIAGNOSIS: Acute cholecystitis. PROCEDURE: Laparoscopic cholecystectomy. ESTIMATED BLOOD LOSS: 50 mL. DRAINS: None. ANESTHESIA: GET. REASON FOR PROCEDURE: This is a 56-year-old gentleman who presented to the hospital with abdominal pain. He was found to have evidence of acute cholecystitis on both imaging and on his laboratory studies. Because of this, he was consented for laparoscopic, possible open cholecystectomy. In addition, on CT for workup of his abdominal pain, he was found to have a calcification at the dome of the bladder. He was seen by Urology for the mass at the dome of the bladder/urachus and is scheduled for cystoscopy as an outpatient in 2 weeks. Because of the inflammation noted on his gallbladder and right upper quadrant pain and findings consistent with acute cholecystitis, again, he was consented for laparoscopic, possible open cholecystectomy. The risks and benefits of the procedure were explained. This included bleeding, infection, hernia, NE, DVT, PE, injury to surrounding abdominal structures, bile leak and retained stone. He understood and signed consent. DESCRIPTION OF PROCEDURE: The patient was placed supine on the operative table. He underwent general endotracheal intubation. The abdomen was prepped and draped in the sterile fashion. Timeout was performed. A transverse incision was made to the left of the umbilicus with a 5-mm Optic trocar inserted under direct visualization with the laparoscope. Pneumoperitoneum was established. Subsequently, 5-mm trocar was placed in the subxiphoid area and two 5-mm trocars placed in the right upper quadrant. The initial 5-mm trocar was replaced with a 12-mm trocar. The patient was placed in reverse Trendelenburg, right side up position. The gallbladder was noted immediately to be distended and inflamed. Because of this, needle decompression had to be performed. Extensive bile was suctioned from the gallbladder and adequate decompression was noted. Adhesions toward the omentum and surrounding tissue were carefully freed until the gallbladder was free from surrounding structures. The cystic duct, followed by cystic artery, was circumferentially dissected, clipped, and transected. The gallbladder was removed off the liver bed using electrocautery. It was noted that the gallbladder was intrahepatic during this part of the dissection. Hemostasis of the gallbladder was obtained using both electrocautery as well as a Surgicel dressing at the end of the case. Copious irrigation and suction was performed until dry. The gallbladder was placed in EndoCatch bag. It was removed from the abdominal cavity and taken off the field. Inspection of the abdominal cavity was again preformed, and again hemostasis noted. Pneumoperitoneum was deflated. All trocars were removed. The fascia at the left periumbilical incision was closed using 0 Vicryl suture in [id number] fashion x2. The deep subcutaneous tissue at this incision was closed using 2-0 Vicryl suture. All incisions were closed using 4-0 Biosyn after 20 mL of Marcaine was injected. Sterile dressings were applied. The patient tolerated the procedure well and was transferred to the recovery room in stable condition. ALISIA GERARD M.D. [id number]
--- NOTE | 2017-01-30 14:05 | PATH ---
Surgical Pathology Report Patient Name: ANISHA HSU Med. Rec. #: [id number] /Age/Gender: 1960 (Age: 56) / M Account: [id number] Location: [facility] MED-SURG Taken: 01/28/2017 Received: 01/28/2017 Reported: 01/30/2017 Physicians: Lawrence Gerard M.D. Specimen(s) Received GALLBLADDER Clinical History Acute cholecystitis Final Diagnosis GALLBLADDER, CHOLECYSTECTOMY: ACUTE, CHRONIC, AND NECROTIZING CHOLECYSTITIS AND CHOLELITHIASIS. ATTACHED PORTIONS OF LIVER TISSUE SHOW MACROVESICULAR STEATOSIS. IRON STAIN SHOWS NO INCREASED IRON DEPOSITION. TRICHROME STAIN IS LIMITED BY SUBCAPSULAR LOCATION OF BIOPSY, BUT SHOWS NO DEFINITE INCREASED FIBROSIS. Electronically Signed Johnnie Ralph M.D. Gross Description Received in formalin, labeled "gallbladder," is a 9.0 x 3.3 x 3.3 cm. gallbladder with a 0.3 cm. in length portion of cystic duct attached. The outer surface is osborne-cortes and varies from smooth to shaggy. There is a portion of liver bed attached to the specimen. The lumen contains red-brown, bloody bile as well as multiple brown-yellow, irregular to fragmented choleliths ranging from 0.1-2.3 cm in greatest dimension. The mucosa is brown and velvety. The wall of the gallbladder ranges from 0.1-0.6 cm. in thickness. Salvage Winder And Inspector sections are submitted in 2 cassettes as follows: 1-cystic duct margin and outside medical sales representative gallbladder; 2-liver. /01/28/201701/28/2017
== END 2017-01-28 11:51 | disposition home or self-care (01) | DRG 263 ==
LOC: FER 15:40 → FM/S 19:11
PROVIDERS: ADMIT Internal Medicine; ATTEND Nurse Practitioner Family
PROC: 0FT44ZZ Resection of Gallbladder, Percutaneous Endoscopic Approach (ICD-10-PCS; principal; 2017-01-27 12:37)
DX: K81.0 Acute cholecystitis (principal); E78.5 Hyperlipidemia, unspecified; E03.9 Hypothyroidism, unspecified; N32.89 Other specified disorders of bladder; E66.9 Obesity, unspecified; Z68.29 Body mass index [BMI] 29.0-29.9, adult; Z71.3 Dietary counseling and surveillance
CPT/HCPCS: 36415; 71020-TC; 74176-TC; 76705-TC; 80048; 80053; 81003; 81015; 83690; 83735; 84100; 85025; 85027; 85610; 85730; 86850; 86900; 86901; 87040; 88304-TC; 93005; 94760; 99283-25